=== PATIENT | female | born 1930 | race Caucasian/White ===

== ENCOUNTER → 2016-09-07 | Day surgery (SDC) | payer MEDICARE ==
[~2016-09-07] VITALS: Ht 162.6 cm; Wt 66.8 kg
[~2016-09-07] MED LIST: ACETAMINOPHEN 1000 MG/100 ML VIAL IV ONE; BYST10TA2 PO; CALTTAB PO; CENTTAB PO; CEPH-459 PO; DEXAMETHASONE SOD PHOS 4 MG/ML VIAL ONE; DO NOT ADM ANY ANTICOAGULANT DRUGS XX PRN; FAMOTIDINE 20 MG/2 ML VIAL ONE; HYDR12.56 PO; INSULIN HUMAN REGULAR 1,000 UNITS/10 ML VIAL SQ PRN; IOHEXOL 300 MG/ML 50 ML BTL (for RAD DIAG) OTHER ONE; LACTATED RINGER'S 1000 ML IV SCH; LEVO.075 PO; LISI40TA PO; LORA-392 PO; METOPROLOL TARTRATE 25 MG TAB PO PRN; OCUVTAB4 PO; ONDANSETRON HCL 4 MG/2 ML VIAL IV PUSH ONE; ONDANSETRON HCL 4 MG/2 ML VIAL IV PUSH PRN; PERC5TAB12 PO; PLAV75TA29 PO; PRED1 PO; PROPOFOL 200 MG/20 ML AMP IV ONE; SODIUM CHLORID 0.9% 500 ML IV SCH; VITA100036 PO; ceFAZolin 1,000 MG/NS 100 ML IV SCH; ePHEDrine/NS 25 MG/5 ML SYR IV ONE; oxyCODONE/ACETAMINOPHEN 5 MG/325 MG TAB PO PRN
[2016-09-07 09:14] VITALS: BP 161/68; PULSE 58; RESP 16; TEMP 98.1; O2SAT 95
[2016-09-07 09:23] LABS: AUTOMATED NEUTROPHIL # 8.2 TH/MM3 (1.8-7.7); BASOPHIL # 0.1 TH/MM3 (0-0.2); BASOPHIL % 1.1 % (0.0-2.0); EOSINOPHIL # 0.2 TH/MM3 (0-0.4); EOSINOPHIL % 1.6 % (0.0-4.0); HEMATOCRIT 38.3 % (35.0-46.0); HEMO FLAGS DIFF FINAL; LYMPH % 10.7 % (9.0-44.0); LYMPHOCYTE # 1.2 TH/MM3 (1.0-4.8); MEAN CELL VOLUME 87.5 FL (80.0-100.0); MEAN CORPUSCULAR HEMOGLOBIN 29.4 PG (27.0-34.0); MEAN CORPUSCULAR HGB CONC 33.6 % (32.0-36.0); MONO % 10.5 % (0.0-8.0); NEUT % 76.1 % (16.0-70.0); PLATELET COUNT 239 TH/MM3 (150-450); RED BLOOD COUNT 4.38 MIL/MM3 (4.00-5.30); RED CELL DISTRIBUTION WIDTH 13.7 % (11.6-17.2); WHITE BLOOD COUNT 10.8 TH/MM3 (4.0-11.0)
--- NOTE | 2016-09-07 11:26 | PD.OP ---
Operative Report Date of Surgery: Sep 07, 2016 Preoperative Diagnosis: (1) Bladder cancer (2) Ureteral calculus, right Postoperative Diagnosis: (1) Bladder cancer Procedure: Cystoscopy, bilateral retrograde pyelograms, transurethral resection of tumor involving left ureteral orifice and placement of left custodial ureteral stent. Anesthesia: General Surgeon: Edinson Morejon Cytogenetics Technologist(s): None Operation and Findings: Indication for procedure: Case of a pleasant 86-year-old female with a bladder tumor located at the left ureteral orifice which is been managed conservatively over the past year. Recent CT scan demonstrated new onset of left hydronephrosis. Also noted on CT scan was mild right hydronephrosis possibly related to a small obstructing right midureteral stone. Presents now for cystoscopy, bilateral retrograde pyelogram studies, transurethral resection of bladder tumor involving left ureteral orifice and placement of left ureteral stent. Intraoperative findings: 1.5 cm tumor involving the left ureteral orifice. No evidence of obstructing stone involving the right ureter. Operative procedure in detail: Patient was brought to the operating suite and placed supine on the cystoscopy table. She was then placed under general anesthesia. She was then repositioned in the dorsal lithotomy position and prepped and draped in normal sterile fashion. After the appropriate timeout was undertaken proceeded with cystoscopic evaluation utilizing the rigid cystoscope with the 22 Lebanese sheath and the 30 lens. Patient was noted to have a frondular tumor originating from the left ureteral orifice greater than 1.5 cm in size. There was no reflux of urine noted on the left and there was clear reflux of urine noted on the right side. I then proceeded with performing a right sided retrograde pyelogram utilizing 6 Lebanese open-ended ureteral catheter. There was prompt filling and drainage of the right collecting system without evidence of obstruction or filling defects. There was no evidence of hydroureteronephrosis. I then focused my attention towards the left side and I gently attempted to pass a 0.035 wire up the left ureter without success. The cystoscope was exchanged for the resectoscope with the 24 Lebanese cutting loop and I proceeded with resecting some of the tumor protruding from the left orifice. I then replaced the resectoscope with cystoscope and this time was successful and passing a wire up the patient's left ureter. A 6 Lebanese open-ended catheter was advanced over the wire and a left retrograde pyelogram study performed. There was marked. Hydroureteronephrosis noted. I then exchanged open-ended catheter for a 6 Lebanese 26 cm termite control technician double-J stent. The stent was passed under both cystoscopic and fluoroscopic guidance without difficulty. Once the stent was in proper position and the trailing string was removed. I then once again utilize a resectoscope and resected as much of the tumor as possible from the left ureteral orifice. A 16 Lebanese 10 cc Kim catheter was placed and connected to gravity drainage. The patient tolerated the procedures without complications and was transferred to the PACU in satisfactory condition. Edinson Morejon MD Sep 07, 2016 11:26
[2016-09-07 13:32] VITALS: BP 145/60; PULSE 62; RESP 16; TEMP 98; O2SAT 98
--- NOTE | 2016-09-07 14:16 | EKG ---
Date Performed: 09/07/2016 Time Performed: 08:37:18 PTAGE: 86 years EKG: SINUS BRADYCARDIA NONSPECIFIC ST & T-WAVE ABNORMALITY BORDERLINE ECG NO PREVIOUS TRACING DOCTOR: Levi Torres Interpretating Date/Time 09/07/2016 14:13:30
== END | disposition home or self-care (01) ==
LOC: HSDC 07:56
PROVIDERS: ATTEND Urology
DX: C67.9 Malignant neoplasm of bladder, unspecified (principal); N20.1 Calculus of ureter; I10 Essential (primary) hypertension; R94.31 Abnormal electrocardiogram [ECG] [EKG]
CPT/HCPCS: 00912; 52234; 52332; 74420; 85025; 93005; C1769; J0131; J0690; J1100; J2405; J3010; J7120; Q9967

== ENCOUNTER → 2016-12-21 | Day surgery (SDC) | payer MEDICARE ==
[~2016-12-21] VITALS: Ht 162.6 cm; Wt 63.8 kg
[~2016-12-21] MED LIST changes: +*morphine SULFATE 8 MG/ML PERIprocedure ONLY ONE; -ACETAMINOPHEN 1000 MG/100 ML VIAL IV ONE; +CHLORHEXIDINE GLUCONATE 2 % 1 PACK (2 CLOTHS) TOPICAL PRN; +DO NOT ADM ANY ANTICOAGULANT DRUGS PRN; -DO NOT ADM ANY ANTICOAGULANT DRUGS XX PRN; +HYDROCORTISONE SOD SUCCINATE 100 MG VIAL ONE; -IOHEXOL 300 MG/ML 50 ML BTL (for RAD DIAG) OTHER ONE; +IOHEXOL 350 MG/ML 50 ML BTL (for RAD DIAG) ONE; +LACTATED RINGER'S 1000 ML IV PRN; -LACTATED RINGER'S 1000 ML IV SCH; +METHYLENE BLUE 100 MG/10 ML VIAL OTHER ONE; +MIDAZOLAM HCL 2 MG/2 ML VIAL ONE; +POVIDONE IODINE 5% (ANTISEPSIS KIT) 4 APPLICATIONS EACH NARE PRN; +SODIUM CHLORID 0.9% 500 ML IV PRN; -SODIUM CHLORID 0.9% 500 ML IV SCH
[2016-12-21 09:54] VITALS: BP 177/70; PULSE 62; RESP 16; TEMP 98.1; O2SAT 97
[2016-12-21 10:26] LABS: AUTOMATED NEUTROPHIL # 8.6 TH/MM3 (1.8-7.7); BASOPHIL # 0.2 TH/MM3 (0-0.2); BASOPHIL % 1.8 % (0.0-2.0); EOSINOPHIL # 0.2 TH/MM3 (0-0.4); EOSINOPHIL % 2.2 % (0.0-4.0); HEMATOCRIT 34.4 % (35.0-46.0); HEMO FLAGS DIFF FINAL; LYMPHOCYTE # 0.8 TH/MM3 (1.0-4.8); MEAN CELL VOLUME 87.8 FL (80.0-100.0); MEAN CORPUSCULAR HEMOGLOBIN 29.5 PG (27.0-34.0); MEAN CORPUSCULAR HGB CONC 33.6 % (32.0-36.0); MONO % 9.4 % (0.0-8.0); NEUT % 79.6 % (16.0-70.0); PLATELET COUNT 273 TH/MM3 (150-450); RED BLOOD COUNT 3.92 MIL/MM3 (4.00-5.30); RED CELL DISTRIBUTION WIDTH 14.9 % (11.6-17.2); WHITE BLOOD COUNT 10.9 TH/MM3 (4.0-11.0)
--- NOTE | 2016-12-21 14:00 | PD.OP ---
Operative Report Date of Surgery: Dec 21, 2016 Preoperative Diagnosis: (1) History of bladder cancer Postoperative Diagnosis: (1) History of bladder cancer Procedure: Cystoscopy, removal of left ureteral stent and biopsy/fulguration of irregular tissue at left ureteral orifice. Anesthesia: General Surgeon: Edinson Morejon Hot Wire Glass Tube Cutter(s): None Operation and Findings: Indication for procedure: Case of a pleasant 86-year-old female with history of a tumor located at the left ureteral orifice causing left hydronephrosis with been managed with a left nephrostomy tube for approximately 1 year. Patient recently had cystoscopy with transurethral resection of the tumor and placement of a left terminal worker stent. Patient had developed hematuria soon thereafter and underwent cystoscopy with clot evacuation and rebiopsy of the tissue at the left ureteral orifice which came back negative for malignancy. Patient presents today for cystoscopy and left ureteral stent removal. Operative procedure in detail: Patient was brought to the operating room suite and placed supine on the cystoscopy table. She was then placed under general anesthesia. She was then repositioned in the dorsolithotomy position and prepped and draped in normal sterile fashion. After appropriate timeout was undertaken proceeded with cystoscopic evaluation utilizing the rigid cystoscope with the 30 lens a 20 Latvian sheath. The right ureteral orifice could be seen in correct anatomic position effluxing clear yellow urine and the distal loop of the previously past left stent was protruding from the left ureteral orifice. There was some irregular tissue adjacent to the left ureteral orifice. I next utilized the occiput graspers and removed the left stent under direct vision. I next proceeded with biopsy and fulguration of the irregular tissue along the left ureteral orifice. I next proceeded to attempt to perform a left retrograde pyelogram however I cannot accurately cannulate left ureteral orifice as it had contracted and thus did not perform this procedure. 10 cc of indigo Christel was a investment underwriter intravenously and after 30 minutes I cannot clearly see any reflux of this material from the left orifice nor from the right orifice. A 16 Latvian 10 cc Kim catheter was placed and connected to gravity drainage and the patient transferred to the PACU in satisfactory condition. Edinson Morejon MD Dec 21, 2016 14:00
[2016-12-21 15:20] VITALS: BP 123/76; PULSE 60; RESP 18; TEMP 97.8; O2SAT 98
== END | disposition home or self-care (01) ==
LOC: HSDC 09:09
PROVIDERS: ATTEND Urology
DX: C67.9 Malignant neoplasm of bladder, unspecified (principal); N28.89 Other specified disorders of kidney and ureter; E03.9 Hypothyroidism, unspecified; D64.9 Anemia, unspecified; M06.9 Rheumatoid arthritis, unspecified; I10 Essential (primary) hypertension; I73.9 Peripheral vascular disease, unspecified; Z88.5 Allergy status to narcotic agent; Z88.8 Allergy status to other drugs, medicaments and biological substances; Z85.51 Personal history of malignant neoplasm of bladder; Z86.718 Personal history of other venous thrombosis and embolism; Z91.048 Other nonmedicinal substance allergy status; Z87.891 Personal history of nicotine dependence; M19.90 Unspecified osteoarthritis, unspecified site; Z93.6 Other artificial openings of urinary tract status
CPT/HCPCS: 52310; 85025; 88305; C1769; J0690; J1100; J1720; J2250; J2270; J2405; J3010; J7120; Q9967

== ENCOUNTER 2017-03-01 08:30 | Day surgery (SDC) | payer MEDICARE ==
[~2017-03-01] VITALS: Ht 157.5 cm; Wt 65.9 kg
[~2017-03-01 08:30] MED LIST changes: -*morphine SULFATE 8 MG/ML PERIprocedure ONLY ONE; -CALTTAB PO; -CENTTAB PO; -CHLORHEXIDINE GLUCONATE 2 % 1 PACK (2 CLOTHS) TOPICAL PRN; -DEXAMETHASONE SOD PHOS 4 MG/ML VIAL ONE; -DO NOT ADM ANY ANTICOAGULANT DRUGS PRN; -FAMOTIDINE 20 MG/2 ML VIAL ONE; -HYDROCORTISONE SOD SUCCINATE 100 MG VIAL ONE; -INSULIN HUMAN REGULAR 1,000 UNITS/10 ML VIAL SQ PRN; -IOHEXOL 350 MG/ML 50 ML BTL (for RAD DIAG) ONE; -LACTATED RINGER'S 1000 ML IV PRN; -METHYLENE BLUE 100 MG/10 ML VIAL OTHER ONE; -METOPROLOL TARTRATE 25 MG TAB PO PRN; -MIDAZOLAM HCL 2 MG/2 ML VIAL ONE; -ONDANSETRON HCL 4 MG/2 ML VIAL IV PUSH ONE; -ONDANSETRON HCL 4 MG/2 ML VIAL IV PUSH PRN; -POVIDONE IODINE 5% (ANTISEPSIS KIT) 4 APPLICATIONS EACH NARE PRN; -PROPOFOL 200 MG/20 ML AMP IV ONE; -SODIUM CHLORID 0.9% 500 ML IV PRN; -ceFAZolin 1,000 MG/NS 100 ML IV SCH; -ePHEDrine/NS 25 MG/5 ML SYR IV ONE; -oxyCODONE/ACETAMINOPHEN 5 MG/325 MG TAB PO PRN
[2017-03-01 09:03] VITALS: BP 189/82; PULSE 60; RESP 18; TEMP 97.9; O2SAT 96
[2017-03-01] MEDS ORDERED: CALTCHW5 PO (09:23)
[2017-03-01] MEDS ORDERED: LEVOFLOXACIN 500 MG PREMIX 100 ML - nephrostomy tube insertion or exchange IV SCH (09:30)
[2017-03-01] MEDS ORDERED: SODIUM CHLORIDE 0.9% 1000 ML IV SCH (09:30)
[2017-03-01 09:39] LABS: AUTOMATED NEUTROPHIL # 7.6 TH/MM3 (1.8-7.7); BASOPHIL # 0.1 TH/MM3 (0-0.2); BASOPHIL % 1.4 % (0.0-2.0); EOSINOPHIL # 0.1 TH/MM3 (0-0.4); EOSINOPHIL % 1.2 % (0.0-4.0); HEMATOCRIT 38.6 % (35.0-46.0); HEMO FLAGS DIFF FINAL; LYMPH % 8.5 % (9.0-44.0); LYMPHOCYTE # 0.8 TH/MM3 (1.0-4.8); MEAN CELL VOLUME 86.7 FL (80.0-100.0); MEAN CORPUSCULAR HEMOGLOBIN 28.7 PG (27.0-34.0); MEAN CORPUSCULAR HGB CONC 33.1 % (32.0-36.0); NEUT % 79.9 % (16.0-70.0); PLATELET COUNT 206 TH/MM3 (150-450); RED BLOOD COUNT 4.46 MIL/MM3 (4.00-5.30); RED CELL DISTRIBUTION WIDTH 15.2 % (11.6-17.2); WHITE BLOOD COUNT 9.6 TH/MM3 (4.0-11.0)
[2017-03-01 09:49] LABS: APTT (PATIENT) 23.6 SEC (24.3-30.1)
[2017-03-01 10:03] LABS: BICARBONATE 28.7 MEQ/L (21.0-32.0); POTASSIUM 3.5 MEQ/L (3.5-5.1)
--- NOTE | 2017-03-01 11:12 | RADRPT ---
EXAM DATE/TIME: 03/01/2017 10:18 [facility] COMPARISON: No previous studies available for comparison. INDICATIONS : Pre op nephrostomy tube. ORAL CONTRAST: No oral contrast ingested. RADIATION DOSE: 9.96 CTDIvol (mGy) MEDICAL HISTORY : Hypertension. Carcinoma, bladder. Skin cancer. SURGICAL HISTORY : Appendectomy. Cholecystectomy.Hysterectomy.Hernia repair. ENCOUNTER: Initial ACUITY: 1 day PAIN SCALE: 5/10 LOCATION: Left flank TECHNIQUE: Volumetric scanning of the abdomen and pelvis was performed. Using automated exposure control and ad justment of the mA and/or kV according to patient size, radiation dose was kept as low as reasonably achievable to obtain optimal diagnostic quality images. DICOM format image data is available electro nically for review and comparison. FINDINGS: LOWER LUNGS: The visualized lower lungs are clear. There is dense calcification of the mitral annulus. LIVER: Homogeneous density without lesion. There is no dilation of the biliary tree. There has been prior cholecystectomy with clips in the gallbladder fossa. SPLEEN: Normal size without lesion. PANCREAS: Within normal limits. KIDNEYS: Normal in size and shape. There is a 3 mm nonobstructing right renal stone. Severe left hydronephrosi s and hydroureter is present with hydroureter extending to the ureter vesicle junction. There is a souza rgical clip anterior to the left psoas muscle and lateral to the mid left ureter. ADRENAL GLANDS: Within normal limits. VASCULAR: There is no aortic aneurysm. There is severe atherosclerotic disease. BOWEL/MESENTERY: The stomach, small bowel, and colon demonstrate no acute abnormality. There is no free intraperitone al air or fluid. A small hiatal hernia is present. There is sigmoid diverticulosis. ABDOMINAL WALL: There is anterior-abdominal wall laxity. RETROPERITONEUM: There is no lymphadenopathy. BLADDER: There is focal calcification at the left ureterovesical junction measuring approximately 7 mm. No gertrudis id masses identified. REPRODUCTIVE: The uterus is absent. INGUINAL: There is no lymphadenopathy or hernia. MUSCULOSKELETAL: There are degenerative changes of the lumbar spine. CONCLUSION: 1. There is a stone versus calcified lesion at the left ureterovesical junction obstructing the UVJ a nd causing severe left hydronephrosis and hydroureter. 2. There is a 3 mm nonobstructing right renal stone. 3. Nonacute findings include small hiatal hernia, severe atherosclerotic disease, and sigmoid diverti culosis. Thomas Alamo MD on March 01, 2017 at 10:34 Board Certified Radiologist. This report was verified electronically.
[2017-03-01] MEDS ORDERED: MIDAZOLAM HCL 2 MG/2 ML VIAL ONE (11:48)
[2017-03-01] MEDS ORDERED: IOHEXOL 350 MG/ML 50 ML BTL (for RAD DIAG) ONE (12:56)
[2017-03-01 12:58] VITALS: BP 146/66; PULSE 58; RESP 18; TEMP 98; O2SAT 95
--- NOTE | 2017-03-01 13:01 | PD.RAD ---
Post Procedure Progress Note Pre Procedure Diagnosis: (1) Bladder cancer (2) Occlusion of left ureter Post Procedure Diagnosis: (1) Bladder cancer (2) Occlusion of left ureter Procedure Date: Mar 01, 2017 Supervising Radiologist: Angelo Luciano JR Proceduralist/Assist: Jas Jeffers, RT(R), Amy Whittington RT(R) Anesthesia: Conscious Sedation Plan of Activity Patient to Unit: ROPU Patient Condition: Good See PACS Report for procedural detail/treatment Drainage Procedure Procedure 1 Imaging Guidance: Fluoroscopy, Ultrasound Side: Left Procedure Type: Nephrostomy, Ureteral Stent Procedure: Placement Eritrean: 8 Fluid Description: Bloody Findings: Antegrade nephrostogram shows occlusion of L ureter at UVJ. Placed 8F ureteral stent and 8F nephrostomy tube. Mild hematuria. Plan Keep nephrostomy tube to gravity drainage for two days. May cap after two days if clear. If urine is not clearing in 3-4 days, call IR. Schedule IR f/u for nephrostomy tube removal under fluoro once Dr Morejon has finished working thru the urinary bladder. Jr. Mustapha,Angelo Sauer MD Mar 01, 2017 13:01
[2017-03-01 13:13] VITALS: BP 114/47; PULSE 58; RESP 19; O2SAT 94
[2017-03-01 13:43] VITALS: BP 144/72; PULSE 60; RESP 18; O2SAT 95
[2017-03-01 14:13] VITALS: BP 118/68; PULSE 63; RESP 19; O2SAT 97
--- NOTE | 2017-03-01 14:18 | RADRPT ---
EXAM DATE/TIME: 03/01/2017 11:44 [facility] COMPARISON: No previous studies available for comparison. INDICATIONS : Patient with bladder cancer and left ureteral obstruction in need of ureteral stent and nephrostomy c atheter placement. MEDICAL HISTORY : Urothelial cancer, Hypothyroidism, DVT, HTN, PVD, UTI SURGICAL HISTORY : Cholecystectomy, Colectomy, Gastric bypass, Bilateral mastectomy, Transuretheral resection and stent placement, Stent removal and biopsy of distal ureter ENCOUNTER: Initial ACUITY: 2 months PAIN SCORE: 0/10 FLUORO TIME: 11 minutes IMAGE SERIES: 4 SEDATION TIME: 30 minutes CONTRAST: 35 cc Omnipaque (iohexol) 350 MEDICATION(S): 1.) 2 mg midazolam (Versed) IV 2.) 100 mcg fentanyl (Sublimaze) IV DEVICE(S): 1.) 8 Vietnamese X24CM Polaris ureteral stent 2.) 8 Vietnamese X25CM nephrostomy catheter PROCEDURE : 1. ultrasound and fluoroscopically guided percutaneous nephrostogram 2. Left ureteral stent placement 3. Left nephrostomy tube placement 4. Conscious sedation with continuous monitoring The risks, benefits and alternatives to the procedure were explained and verbal and written consent w as obtained. The site was prepped in sterile fashion. Full sterile technique was used, including ca p, mask, sterile gloves and gown and a large sterile sheet. Hand hygiene and 2% chlorhexidine and/or betadine/alcohol prep was utilized per protocol for cutaneous antisepsis. The skin and subcutaneous tissues were infiltrated with local anesthetic solution. <Sonographic evaluation of the left kidney shows significant hydronephrosis. The under direct [facility]ogra [facility] guidance a 21 gauge needle was passed into the collecting system of the left kidney. Clear urine was noted. Injection of contrast through the needle opacified the collecting system showing signific ant hydronephrosis and hydroureter. A lower pole access was planned. Under direct fluoroscopic guidan ce a 21 gauge needle was passed down to a left lower pole calyx. A 0.018 wire was passed into the col lecting system under fluoroscopic control. An Accu stick system was utilized to exchange for a 0.035 wire and Berenstein catheter. These were utilized to gain access to the lower ureter which reveals a distal ureteral occlusion at the UVJ. I was able to gain access across the ureteral occlusion. A 24 cm length 8 Vietnamese ureteral stent was p assed across the occlusion and appropriately positioned within the renal pelvis. A nephrostomy tube w as left in place. Injection of contrast confirmed appropriate position and patency of both devices. M ild hematuria noted. The nephrostomy tube was sutured in place.>> CONCLUSION: Occlusion at the left UVJ with successful placement of a left ureteral stent and left nephrostomy tub e. The patient was instructed to drain to a gravity drainage bag for 2 days and if the urine has luis red by that time then she can cap the nephrostomy tube. The patient has an appointment with Dr.Scagli silvestre in 2 weeks. After he has finished performing his procedure from below we can consider removal of th e nephrostomy tube under fluoroscopic guidance. Angelo Luciano Jr., MD on March 01, 2017 at 14:10 Board Certified Radiologist. This report was verified electronically.
== END 2017-03-01 15:00 | disposition home or self-care (01) ==
LOC: HROP 08:30 → HRIP 08:31 → HROP 15:00
PROVIDERS: ATTEND Urology
DX: N13.5 Crossing vessel and stricture of ureter without hydronephrosis (principal); R31.9 Hematuria, unspecified; C67.9 Malignant neoplasm of bladder, unspecified; I10 Essential (primary) hypertension; E03.9 Hypothyroidism, unspecified; I73.9 Peripheral vascular disease, unspecified; Z98.84 Bariatric surgery status; Z01.810 Encounter for preprocedural cardiovascular examination
CPT/HCPCS: 50695; 74176; 80048; 85025; 85610; 85730; 99152; 99153; C1729; C1769; C1887; C1894; C2617; J1956; J2250; J3010; J7030; Q9967

== ENCOUNTER 2017-03-08 09:57 | Day surgery (SDC) | payer MEDICARE ==
[~2017-03-08 09:57] MED LIST changes: +CALTCHW5 PO; -CEPH-459 PO; -PERC5TAB12 PO
[2017-03-08] MEDS ORDERED: IOHEXOL 350 MG/ML 50 ML BTL (for RAD DIAG) OTHER ONE (09:58)
[2017-03-08 10:20] VITALS: BP 191/82; PULSE 63; RESP 18; TEMP 98.1; O2SAT 97
[2017-03-08] MEDS ORDERED: SODIUM CHLOR 0.9% 1000 ML INJ 1,000 ML IV SCH (12:00)
--- NOTE | 2017-03-08 12:02 | PD.RAD ---
Post Procedure Progress Note Pre Procedure Diagnosis: (1) History of bladder cancer (2) Occlusion of left ureter Post Procedure Diagnosis: (1) History of bladder cancer (2) Occlusion of left ureter Procedure Date: Mar 08, 2017 Supervising Radiologist: Angelo Luciano JR Proceduralist/Assist: Dangelo Lechuga, RT(R), oJhnnie Ramírez RT(R)() Anesthesia: Other Plan of Activity Patient to Unit: ROPU Patient Condition: Good Additional Comments: Nephrostogram thru PCN on left shows patent ureteral stent. No hydronephrosis. PCN removed under fluoroscopic control. See PACS Report for procedural detail/treatment Jr. Mustapha,Angelo Sauer MD Mar 08, 2017 12:02
--- NOTE | 2017-03-08 15:09 | RADRPT ---
EXAM DATE/TIME: 03/08/2017 11:33 [facility] COMPARISON: No previous studies available for comparison. INDICATIONS : Patient with history bladder cancer in need of evaluation of left nephrostomy with possible removal. MEDICAL HISTORY : Urothelial cancer, Hypothyroidism, DVT, HTN, PVD, UTI SURGICAL HISTORY : Cholecystectomy, Colectomy, Gastric bypass, Bilateral mastectomy, Transuretheral resection and stent placement, Stent removal and biopsy of distal ureter ENCOUNTER: Subsequent ACUITY: >1 year PAIN SCORE: 0/10 FLUORO TIME: 0.5 minutes IMAGE SERIES: 2 CONTRAST: 10 cc Omnipaque (iohexol) 350 DEVICE(S): 1.) None PROCEDURE : 1. Antegrade pyelogram. 2. Nephrostomy tube removal. The risks, benefits and alternatives to the procedure were explained and verbal and written consent w as obtained. The site was prepped in sterile fashion. Full sterile technique was used, including ca p, mask, sterile gloves and gown and a large sterile sheet. Hand hygiene and 2% chlorhexidine and/or betadine/alcohol prep was utilized per protocol for cutaneous antisepsis. With fluoroscopic guidance the existing nephrostomy catheter was injected. Contrast injection shows the collecting system to be normal in caliber. A double-J stent is in good position and draining well with contrast reaching the urinary bladder. Direct manual pressure was applied to the site. There were no complications and the patient was sent to post anesthesia recovery in stable condition. CONCLUSION: Double-J stent patent on the left. The nephrostomy tube was therefore removed under fluoroscopic guid ance. Angelo Luciano Jr., MD on March 08, 2017 at 15:05 Board Certified Radiologist. This report was verified electronically.
== END 2017-03-08 12:30 | disposition home or self-care (01) ==
LOC: HRIP 09:57 → HROP 09:57
PROVIDERS: ATTEND Urology
DX: N13.5 Crossing vessel and stricture of ureter without hydronephrosis (principal); I73.9 Peripheral vascular disease, unspecified; I10 Essential (primary) hypertension; E03.9 Hypothyroidism, unspecified; Z85.51 Personal history of malignant neoplasm of bladder
CPT/HCPCS: 50389; 50431; C1769; Q9967

== ENCOUNTER → 2017-06-28 | Day surgery (SDC) | payer MEDICARE ==
[~2017-06-28] VITALS: Ht 160 cm; Wt 61.8 kg
[~2017-06-28] MED LIST changes: +*morphine SULFATE 8 MG/ML PERIprocedure ONLY ONE; +CEPH-459 PO; +CHLORHEXIDINE GLUCONATE 2 % 1 PACK (2 CLOTHS) TOPICAL PRN; +CHOL10008 PO; +DEXAMETHASONE SOD PHOS 4 MG/ML VIAL IV ONE; +DO NOT ADM ANY ANTICOAGULANT DRUGS PRN; +INSULIN HUMAN REGULAR 1,000 UNITS/10 ML VIAL SQ PRN; +LACTATED RINGER'S 1000 ML IV PRN; +LIDOCAINE HCL 1% PF 5 ML SYRINGE OTHER ONE; +METOPROLOL TARTRATE 25 MG TAB PO PRN; +METOPROLOL TARTRATE 5 MG/5 ML VIAL IV ONE; +MIDAZOLAM HCL 2 MG/2 ML VIAL IV ONE; +MIRA25TA PO; +MORPHINE SULFATE 2 MG/ML INJ IV ONE; +ONDANSETRON HCL 4 MG/2 ML VIAL IV ONE; +ONDANSETRON HCL 4 MG/2 ML VIAL IV PUSH PRN; +PERC5TAB12 PO; +PHENYLEPH/NS 1000 MCG/10 ML SYR IV ONE; +POVIDONE IODINE 5% (ANTISEPSIS KIT) 4 APPLICATIONS EACH NARE PRN; +PROPOFOL 200 MG/20 ML AMP IV ONE; +SODIUM CHLORID 0.9% 500 ML IV PRN; +SODIUM CHLORIDE 0.9% INJ 0 ML ONE; +SODIUM CHLORIDE 0.9% INJ 100 ML ONE; -VITA100036 PO; +ceFAZolin 1,000 MG/NS 100 ML IV SCH; +ePHEDrine/NS 25 MG/5 ML SYR IV ONE; +oxyCODONE/ACETAMINOPHEN 5 MG/325 MG TAB PO PRN
[2017-06-28 11:31] LABS: AUTOMATED NEUTROPHIL # 8.4 TH/MM3 (1.8-7.7); BASOPHIL # 0.1 TH/MM3 (0-0.2); BASOPHIL % 1.4 % (0.0-2.0); EOSINOPHIL # 0.2 TH/MM3 (0-0.4); EOSINOPHIL % 1.6 % (0.0-4.0); HEMATOCRIT 38.6 % (35.0-46.0); HEMO FLAGS DIFF FINAL; LYMPH % 8.7 % (9.0-44.0); LYMPHOCYTE # 0.9 TH/MM3 (1.0-4.8); MEAN CELL VOLUME 88.3 FL (80.0-100.0); MEAN CORPUSCULAR HEMOGLOBIN 29.9 PG (27.0-34.0); MEAN CORPUSCULAR HGB CONC 33.9 % (32.0-36.0); MONO % 8.2 % (0.0-8.0); NEUT % 80.1 % (16.0-70.0); PLATELET COUNT 256 TH/MM3 (150-450); RED BLOOD COUNT 4.37 MIL/MM3 (4.00-5.30); RED CELL DISTRIBUTION WIDTH 14.4 % (11.6-17.2); WHITE BLOOD COUNT 10.5 TH/MM3 (4.0-11.0)
--- NOTE | 2017-06-28 15:03 | PD.OP ---
Operative Report Date of Surgery: Jun 28, 2017 Preoperative Diagnosis: (1) History of bladder cancer Postoperative Diagnosis: (1) Bladder cancer Procedure: Cystoscopy, left retrograde pyelogram, left ureteral stent exchange and bladder biopsies 2 with fulguration Anesthesia: General Surgeon: Edinson Morejon Front Man(s): None Operation and Findings: Indication for procedure: Case of a pleasant 87-year-old female with history bladder cancer involving the left ureteral orifice with occlusion who is status post antegrade stent placement by interventional radiology. Patient presents now for cystoscopy and left ureteral stent exchange. Operative procedure in detail: Patient was brought to the operating suite and placed supine on the OR table. She was then placed under general anesthesia. She was then repositioned in the dorsal lithotomy position and prepped and draped in normal sterile fashion. After appropriate timeout was undertaken, I proceeded with cystoscopic evaluation utilizing the rigid cystoscope with the 20 Bruneian sheath and 30 lens. The previously placed antegrade left ureteral stent could be seen protruding from the left ureteral orifice. The right orifice was effluxing clear yellow urine. There were 2 small tumors less than 1 cm each involving the posterior bladder wall superior and medial to the left ureteral orifice. These tumors were excised utilizing the cup biopsy forceps and the base of each tumor fulgurated with the Bugbee electrode. Next, a Sensory Profile 35 wire was passed up the patient's left ureter alongside the previously past stent and the stent was subsequently removed with flexible forceps. An [place] 6 Bruneian 24 cm double-J stent was then placed under both fluoroscopic and cystoscopic guidance without difficulty. Once the stent was in proper position, the trailing string was removed. The bladder was drained of irrigant fluid and the cystoscope withdrawn. The patient tolerated the procedures without complications and was transferred to the PACU in satisfactory condition. Edinson Morejon MD Jun 28, 2017 15:03
[2017-06-28 16:30] VITALS: BP 130/60; PULSE 62; RESP 16; TEMP 97.8; O2SAT 99
== END | disposition home or self-care (01) ==
LOC: HSDC 10:21 → EDSTATUS 12:30
PROVIDERS: ATTEND Urology
DX: C67.9 Malignant neoplasm of bladder, unspecified (principal); N13.5 Crossing vessel and stricture of ureter without hydronephrosis
CPT/HCPCS: 00910; 52224; 52332; 85025; 88307; C1769; J1100; J2250; J2270; J2370; J2405; J3010; J7120

== ENCOUNTER → 2017-10-26 | Day surgery (SDC) | payer MEDICARE ==
[~2017-10-26] VITALS: Ht 162.6 cm; Wt 63.2 kg
[~2017-10-26] MED LIST changes: +ACETAMINOPHEN 1000 MG/100 ML 100 ML IV ONE; +IOHEXOL 350 MG/ML 50 ML BTL (for RAD DIAG) OTHER ONE; -METOPROLOL TARTRATE 5 MG/5 ML VIAL IV ONE; -MIDAZOLAM HCL 2 MG/2 ML VIAL IV ONE; +MIDAZOLAM HCL 2 MG/2 ML VIAL ONE; -MORPHINE SULFATE 2 MG/ML INJ IV ONE; +MULT1TAB PO; -PERC5TAB12 PO; -PHENYLEPH/NS 1000 MCG/10 ML SYR IV ONE; -SODIUM CHLORIDE 0.9% INJ 0 ML ONE; -SODIUM CHLORIDE 0.9% INJ 100 ML ONE; -ePHEDrine/NS 25 MG/5 ML SYR IV ONE; +ePHEDrine/NS 25 MG/5 ML SYRINGE IV ONE
--- NOTE | 2017-10-26 11:37 | EKG ---
Date Performed: 10/26/2017 Time Performed: 10:29:04 PTAGE: 87 years EKG: SINUS BRADYCARDIA NONSPECIFIC ST & T-WAVE ABNORMALITY BORDERLINE ECG No significant change from prior electrocardiogram. PREVIOUS TRACING : 09/07/2016 08.37 DOCTOR: Miles Logan Interpretating Date/Time 10/26/2017 11:36:27
[2017-10-26 11:42] LABS: AUTOMATED NEUTROPHIL # 9.9 TH/MM3 (1.8-7.7); BASOPHIL # 0.1 TH/MM3 (0-0.2); BASOPHIL % 1.3 % (0.0-2.0); EOSINOPHIL # 0.1 TH/MM3 (0-0.4); EOSINOPHIL % 0.9 % (0.0-4.0); HEMATOCRIT 36.1 % (35.0-46.0); HEMOGLOBIN 11.9 GM/DL (11.6-15.3); LYMPH % 6.3 % (9.0-44.0); LYMPHOCYTE # 0.7 TH/MM3 (1.0-4.8); MEAN CELL VOLUME 87.3 FL (80.0-100.0); MEAN CORPUSCULAR HEMOGLOBIN 28.8 PG (27.0-34.0); MEAN PLATELET VOLUME 10.2 FL (7.0-11.0); MONO % 7.6 % (0.0-8.0); MONOCYTE # 0.9 TH/MM3 (0-0.9); NEUT % 83.9 % (16.0-70.0); PLATELET COUNT 264 TH/MM3 (150-450); RED BLOOD COUNT 4.14 MIL/MM3 (4.00-5.30); RED CELL DISTRIBUTION WIDTH 14.4 % (11.6-17.2); WHITE BLOOD COUNT 11.8 TH/MM3 (4.0-11.0)
--- NOTE | 2017-10-26 14:29 | PD.OP ---
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 Operative procedure in detail: Patient was brought to the operating room suite placed supine on the OR table. She was then placed under general anesthesia. She was then repositioned in the dorsolithotomy position and prepped and draped in normal sterile fashion. After an appropriate timeout was undertaken I proceeded with cystoscopic evaluation utilizing the rigid cystoscope with the 30 lens and 20 Georgian sheath. The previously placed left ureteral stent could be seen protruding from the left ureteral orifice. Under fluoroscopy it appeared that the proximal coil of the stent had migrated down into the proximal left ureter. There was no evidence of any recurrent tumor formation involving the tissue in vicinity of the left orifice or other aspects of the urinary bladder. I proceeded with passing a sensor 0.035 wire alongside the previously placed left ureteral stent and once the wire was was advanced up into the left kidney the stent was removed using flexible forceps. The wire was secured to a sterile drape with hemostat and the self dilating ureteroscope was utilized and ureteroscopy of the distal left ureter was accomplished. There was no evidence of any recurrent tumor formation involving the distal ureter. The ureteroscope was exchanged back to the cystoscope with the guidewire backloaded. A 6 Georgian 26 cm long-term ureteral stent was then placed on the both cystoscopic and fluoroscopic guidance without any difficulty. After manipulation of the stent it did create a small amount of oozing of blood to the tissue at the vicinity of the left ureteral orifice and the Bugbee electrode was utilized to fulgurate this tissue. A 16 Georgian 10 cc Kim catheter was then placed and connected to gravity drainage. The patient tolerated the procedures without complications and was transferred to the PACU in satisfactory condition. Edinson Morejon MD Oct 26, 2017 14:29
[2017-10-26 15:40] VITALS: BP 149/67; PULSE 57; RESP 20; TEMP 97.7; O2SAT 97
== END | disposition home or self-care (01) ==
LOC: HSDC 09:47
PROVIDERS: ATTEND Urology
DX: C67.6 Malignant neoplasm of ureteric orifice (principal); I10 Essential (primary) hypertension; I73.9 Peripheral vascular disease, unspecified; Z79.02 Long term (current) use of antithrombotics/antiplatelets
CPT/HCPCS: 00910; 52214; 52332; 74420; 85025; 93005; C1769; J0131; J0690; J1100; J2250; J2270; J2405; J3010; J7120; Q9967